=== PATIENT | female | born 1940 | race Caucasian/White ===

== ENCOUNTER 2017-04-15 18:55 | Emergency (ER) | payer BC ==
[2017-04-15] MEDS ORDERED: AL HYDROX/MAG HYDROX 30ML UD PO ONE (19:22)
[2017-04-15] MEDS ORDERED: ASPIRIN 81 MG CHEWABLE TABLET PO ONE ×2 (19:22→19:23)
[2017-04-15] MEDS ORDERED: NITROGLYCERIN 0.4MG SL TABLET #25 BTL SL PRN (19:23)
--- NOTE | 2017-04-15 19:28 | Emergency Department Record ---
History of Present Illness - General Chief Complaint: Chest Pain Stated Complaint: BACK & CHEST PAIN Time Seen by Provider: 04/15/17 19:21 Source: Patient Mode of Arrival: Ambulatory - History of Present Illness Initial Comments: Chest heaviness across chest into back while at rest just after 6 .m. tonight, not associated with N, v, diaphoresis, SOB. Taking a deep breath does worsen the symptoms. She denies history of DM, VT, htn, smoking, CVA. She does have elevated cholesterol and restless leg syndrome/ Onset/Timin -: Hour(s) Onset: After eating, During rest Pain Radiation: Back Severity: Moderate Quality: Sharp, Tightness Consistency: Constant Improves With: Nothing Worsens With: Eating, Exertion, Inspiration Context: Other Anginal Symptoms: Other Other Symptoms: Burping Treatments Prior to Arrival: None - Related Data On Oral Contraceptives: No Home Medications Medication Instructions Recorded Confirmed Last Taken Carbidopa/Levodopa [Sinemet 25-100 1 each PO QHS 04/15/17 04/15/17 Unknown mg Tablet] Estradiol [Estradiol] 1 tab PO DAILY 04/15/17 04/15/17 Unknown Meloxicam [Meloxicam] 1 tab PO DAILY PRN 04/15/17 04/15/17 Unknown Allergies Allergy/AdvReac Type Severity Reaction Status Date / Time fentanyl [FENTANYL] Allergy Unknown Unverified 12/04/13 10:02 methadone [METHADONE] Allergy Unknown Unverified 12/04/13 10:02 paroxetine [PAROXETINE] Allergy Unknown Unverified 12/04/13 10:02 pregabalin [PREGABALIN] Allergy Unknown Unverified 12/04/13 10:02 Tetanus Vaccines and Toxoid Allergy Unknown Unverified 12/04/13 10:02 [TETANUS VACCINES & TOXOID] Travel Screening - Travel/Exposure Within Last 30 Days Have you traveled within the last 30 days?: No - Travel Symptoms Symptom Screening: None Review of Systems Reviewed: No additional complaints except as noted below Constitutional: Reports: As per HPI. Denies: Chills, Fever, Malaise, Night sweats, Weakness, Weight change Eyes: Reports: As per HPI. Denies: Eye discharge, Eye pain, Photophobia, Vision change ENT: Reports: As per HPI. Denies: Congestion, Dental pain, Ear pain, Epistaxis , Hearing loss, Throat pain Respiratory: Reports: As per HPI. Denies: Cough, Dyspnea, Hemoptysis, Stridor, Wheezes Cardiovascular: Reports: As per HPI. Denies: Arrhythmia, Chest pain, Dyspnea on exertion, Edema, Murmurs, Orthopnea, Palpitations, Paroxysmal nocturnal dyspnea, Rheumatic Fever, Syncope Endocrine: Reports: As per HPI. Denies: Fatigue, Heat or cold intolerance, Polydipsia, Polyuria Gastrointestinal: Reports: As per HPI. Denies: Abdominal pain, Constipation, Diarrhea, Hematemesis, Hematochezia, Melena, Nausea, Vomiting Genitourinary: Reports: As per HPI. Denies: Abnormal menses, Discharge, Dyspareunia, Dysuria, Frequency, Hematuria, Incontinence, Retention, Urgency Musculoskeletal: Reports: As per HPI. Denies: Arthralgia, Back pain, Gout, Joint swelling, Myalgia, Neck pain Skin: Reports: As per HPI. Denies: Bruising, Change in color, Change in hair/ nails, Lesions, Pruritus, Rash Neurological: Reports: As per HPI. Denies: Abnormal gait, Confusion, Headache, Numbness, Paresthesias, Seizure, Tingling, Tremors, Vertigo, Weakness Psychiatric: Reports: As per HPI. Denies: Anxiety, Auditory hallucinations, Depression, Homicidal thoughts, Suicidal thoughts, Visual hallucinations Hematological/Lymphatic: Reports: As per HPI. Denies: Anemia, Blood Clots, Easy bleeding, Easy bruising, Swollen glands Past Medical History - SOCIAL HISTORY Smoking Status: Never smoker Alcohol Use: None Drug Use: None - RESPIRATORY Hx Respiratory Disorders: No - CARDIOVASCULAR Hx Cardio Disorders: Yes Comment:: hyperlipidemia - NEURO Hx Neuro Disorders: No - GI Hx GI Disorders: No - Hx Genitourinary Disorders: No - ENDOCRINE Hx Endocrine Disorders: No - MUSCULOSKELETAL Hx Musculoskeletal Disorders: Yes Comment:: restless leg syndrome - PSYCH Hx Psych Problems: Yes Hx Anxiety: Yes - HEMATOLOGY/ONCOLOGY Hx Hematology/Oncology Disorders: No Family Medical History Any Significant Family History?: No Family Hx Comment (NOT TO BE USED IN PLACE OF ITEMS BELOW): DENIES Physical Exam - General General Appearance: Alert, Oriented x3, Cooperative, Mild distress, Anxious ( minimally) - Head Head exam: Normal inspection - Eye Eye exam: Normal appearance, PERRL Pupils: Normal accommodation - ENT ENT exam: Normal exam, Mucous membranes moist, Normal external ear exam, Normal orophraynx, TM's normal bilaterally Ear exam: Normal external inspection. negative: External canal tenderness Nasal Exam: Normal inspection. negative: Discharge, Sinus tenderness Mouth exam: Normal external inspection, Tongue normal Teeth exam: Normal inspection. negative: Dental caries Throat exam: Normal inspection. negative: Tonsillar erythema, Tonsillar exudate - Neck Neck exam: Normal inspection, Full ROM. negative: Tenderness - Respiratory Respiratory exam: Normal lung sounds bilaterally. negative: Respiratory distress - Cardiovascular Cardiovascular Exam: Regular rate, Normal rhythm, Normal heart sounds - GI/Abdominal GI/Abdominal exam: Soft, Normal bowel sounds. negative: Tenderness - Rectal Rectal exam: Deferred - exam: Deferred - Extremities Extremities exam: Normal inspection, Full ROM, Normal capillary refill. negative: Calf tenderness, Pedal edema, Tenderness - Back Back exam: Reports: Normal inspection, Full ROM. Denies: CVA tenderness (R), CVA tenderness (L), Muscle spasm, Rash noted, Tenderness - Neurological Neurological exam: Alert, Normal gait, Oriented X3, Reflexes normal - Psychiatric Psychiatric exam: Normal affect, Normal mood - Skin Skin exam: Dry, Intact, Normal color, Warm Course Vital Signs 04/15/17 19:04 Temperature 98.1 F Pulse Rate 90 Respiratory 22 Rate Blood Pressure 186/100 Pulse Ox 97 - Reevaluation(s) Reevaluation #1: The patient has refused all medication ordered for her symptoms. She wishes to be discharged home. She is willing to sign out AMA and understands that she did not have a complete workup for her heart. She will go home with her daughter who works in a local physician's office and she will see him on Wednesday. She understands that she is welcome to return if she changes her mind. She has no symptoms and is feeling better. Her daughter will drive her home. 04/15/17 20:50 Reevaluation #2: spoke with Dr. Mcdaniels regarding this patient who will see her Wednesday in his office. He is aware she left AMA. 04/15/17 21:59 Medical Decision Making - Management Options MDM Management: No Additional Work-up Planned (Leaving AMA) - Data Complexity MDM Data: Labs Ordered and/or Reviewed, X-Ray Ordered and/or Reviewed (CXR negative per rad), EKG Ordered and/or Reviewed - Lab Data Result diagrams: 04/15/17 19:10 04/15/17 19:10 - EKG Data -: EKG Interpreted by Me EKG: No Acute Changes Disposition Disposition: Discharge Clinical Impression: Chest pain at rest Disposition: Against Medical Advice Condition: (1) Good Instructions: Chest Pain (ED) Additional Instructions: Home AMA with your daughter. Return if you change you mind. FU with PCP Wednesday without fail. Forms: Patient Portal Access Quality - Quality Measures Quality Measures: N/A - Blood Pressure Screening Does Patient Have Any of the Following: No Blood Pressure Classification: Hypertensive Reading Systolic Measurement: 186 Diastolic Measurement: 100 Screening for High Blood Pressure: < First Hypertensive BP, F/U Documented > [ [id number]] Pre-Hypertensive Follow-up Interventions: Follow-up with rescreen every year. First Hypertensive Follow-up Interventions: Follow-up with rescreen GT 1 day and LT 4 weeks.
[2017-04-15 19:31] LABS: BASO % 0.4 % (0-6); EOS % 1.6 % (0-6); GRAN % 52.9 % (47-80); HEMATOCRIT 44.3 % (35.0-47.0); HEMOGLOBIN 14.7 gm/dl (11.6-16.0); MEAN CELL VOLUME 92.5 fl (81-97); MEAN CORPUSCULAR HEMOGLOBIN 30.7 pg (27-33); MEAN CORPUSCULAR HGB CONC 33.2 g/dl (32-36); MEAN PLATELET VOLUME 9.6 fl (7.4-10.4); MONO % 8.1 % (0-9); PLATELET COUNT 305 K/uL (130-400); RED BLOOD COUNT 4.79 M/uL (3.80-5.40); RED CELL DISTRIBUTION WIDTH 12.6 % (11.5-14.5); WHITE BLOOD COUNT W/O DIFF 7.4 K/uL (4.2-12.2)
[2017-04-15] MEDS ORDERED: LORAZEPAM 2 MG/ML VIAL IV ONE (19:39)
[2017-04-15 19:44] LABS: CREATININE 0.8 mg/dL (0.52-1.04); EST GLOMERULAR FILTRATION RATE > 60 ml/min
[2017-04-15 19:45] LABS: BLOOD UREA NITROGEN 20 mg/dL (7-17); GLUCOSE,RANDOM 137 mg/dL (70-110)
[2017-04-15 19:50] LABS: D-DIMER 0.33 mg/L FEU (0-0.59); INR 0.94; PARTIAL THROMBOPLASTIN TIME 25.5 SECONDS (24.5-39.1); PROTHROMBIN TIME (PATIENT) 10.2 SECONDS (9.5-12.1)
[2017-04-15 19:58] LABS: TROPONIN I < 0.012 ng/mL (0.00-0.034)
[2017-04-15 20:17] LABS: THYROID STIMULATING HORMONE 4.92 uIU/ml (0.465-4.68)
--- NOTE | 2017-04-16 22:37 | RADIOLOGY REPORT ---
EXAM: CHEST 2 VIEWS HISTORY: CHEST PAIN AFTER EATING. TECHNIQUE: Two-view chest. COMPARISON: None. FINDINGS: Moderate-sized hiatal hernia. Lungs are clear. Cardiac silhouette is not enlarged. Diaphragm and osseous structures are unremarkable. IMPRESSION: MODERATE-SIZED HIATAL HERNIA. NO ACUTE INTRATHORACIC PROCESS. JOB NUMBER: [id number] MTDD
== END 2017-04-15 21:03 | disposition left against medical advice (07) ==
LOC: ER 18:55
DX: R07.89 Other chest pain (principal)
CPT/HCPCS: 71020; 80048; 83880; 84443; 84484; 85025; 85379; 85610; 85730; 93005; 93010; 96374; 99284